=== PATIENT | male | born 1935 | race Caucasian/White ===

== ENCOUNTER 2020-05-20 02:45 | Emergency (ER) | payer MEDICARE ==
[~2020-05-20] VITALS: Ht 180.3 cm; Wt 100.0 kg
[2020-05-20 03:30] VITALS: BP 135/83
== END 2020-05-20 04:35 | disposition home or self-care (01) ==
LOC: EMS 02:47
DX: R41.0 Disorientation, unspecified (principal); I10 Essential (primary) hypertension
CPT/HCPCS: 99281; Z7502

== ENCOUNTER 2021-03-31 07:24 | Emergency (ER) | payer MEDICARE ==
[~2021-03-31] VITALS: Ht 172.7 cm; Wt 70.5 kg
[2021-03-31 08:50] LABS: BASOPHILS % (AUTO) 0.4 % (0.0-2.0); EOSINOPHILS % (AUTO) 0.8 % (1.0-6.0); HEMOGLOBIN 16.3 g/dL (13.5-17.5); LYMPHOCYTES # (AUTO) 0.8 K/uL (1.0-4.8); LYMPHOCYTES % (AUTO) 11.1 % (22.0-44.0); MEAN CORPUSCULAR HEMOGLOBIN 29.2 pg (26.0-34.0); MEAN CORPUSCULAR VOLUME 86 fL (80-100); MONOCYTES # (AUTO) 0.6 K/uL (0.1-1.0); MONOCYTES % (AUTO) 8.3 % (2.0-9.0); NEUTROPHILS # (AUTO) 5.9 K/uL (1.8-7.7); NEUTROPHILS % (AUTO) 79.4 % (40.0-70.0); PLATELET COUNT (AUTO) 147 K/uL (150-450); RED BLOOD CELL COUNT(AUTO) 5.58 MIL/uL (4.50-5.90); RED CELL DISTRIBUTION WIDTH 14.5 % (11.5-14.5)
[2021-03-31 09:00] LABS: CALCIUM, TOTAL 9.6 mg/dL (8.8-10.5); CREATININE 1.21 mg/dL (0.60-1.30); POTASSIUM 3.9 mmol/L (3.5-5.1)
[2021-03-31 09:05] LABS: INR 1.1 (0.9-1.1); PROTHROMBIN TIME 11.5 SEC (9.4-11.6)
[2021-03-31 09:06] LABS: ALBUMIN 4.3 g/dL (3.4-5.0); BILIRUBIN,TOTAL 1.5 mg/dL (0.1-1.0); TOTAL PROTEIN, SERUM 7.9 g/dL (6.4-8.2)
[2021-03-31 11:47] LABS: COVID AG,FIA SOURCE NASAL SWAB
[2021-03-31 11:57] LABS: APPEARANCE,URINE CLEAR (CLEAR); GLUCOSE, URINE (UA) NEGATIVE (NEGATIVE); KETONES,URINE >=80 mg/dL (NEGATIVE); LEUKOCYTE ESTERASE ,URINE NEGATIVE (NEGATIVE); NITRATE,URINE NEGATIVE (NEGATIVE); OCCULT BLOOD,URINE TRACE (NEGATIVE); PH,URINE 5.5 (5.0-8.0); PROTEIN,URINE POS 1+ (NEGATIVE)
[2021-03-31 12:12] LABS: BACTERIA,URINE None Seen /HPF (None Seen); BILIRUBIN,URINE PRELIM. POSITIVE (NEGATIVE); RBC,URINE 0-2 /HPF (0-2); WBC,URINE None Seen /HPF (0-5)
[2021-03-31] MEDS ORDERED: BARIUM SULFATE 0.1% SUSPENSION 450 ML BOTTLE PO ONE ×2 (12:15)
[2021-03-31] MEDS ORDERED: IOHEXOL 350 MG/ML 100 ML VIAL ONE (12:16)
[2021-03-31] MEDS ORDERED: SODIUM CHLORIDE 0.9% 100 ML ONE (12:16)
[2021-03-31 14:24] VITALS: BP 148/73
[2021-03-31] MEDS ORDERED: FAMO20 PO (14:25)
[2021-03-31] MEDS ORDERED: FAMOTIDINE 20 MG TABLET PO ONE (14:30)
[2021-03-31] MEDS ORDERED: ZINC OXIDE 40%/COD LIVER OIL 57 GM PASTE TP ONE (14:30)
[2021-03-31] MEDS ORDERED: DOCUSATE SODIUM 100 MG CAPSULE PO ONE (14:30)
== END 2021-03-31 15:58 | disposition home or self-care (01) ==
LOC: EMS 07:24
DX: L98.411 Non-pressure chronic ulcer of buttock limited to breakdown of skin (principal); K29.70 Gastritis, unspecified, without bleeding; K59.00 Constipation, unspecified; I10 Essential (primary) hypertension; Z20.822 Contact with and (suspected) exposure to COVID-19
CPT/HCPCS: 36415; 74022; 74177; 80053; 81001; 82271; 83690; 85025; 85610; 85730; 86850; 86900; 86901; 87426; 93005; 99285; J7050; Q9967

== ENCOUNTER 2021-04-04 06:52 | Emergency (ER) | payer MEDICARE ==
[~2021-04-04] VITALS: Ht 172.7 cm; Wt 110.0 kg
[~2021-04-04 06:52] MED LIST: FAMO20 PO
[2021-04-04 09:45] VITALS: BP 126/71
== END 2021-04-04 10:44 | disposition home or self-care (01) ==
LOC: EMS 06:53
DX: S40.011A Contusion of right shoulder, initial encounter (principal); I10 Essential (primary) hypertension; Z59.00 Homelessness unspecified; X58.XXXA Exposure to other specified factors, initial encounter; Y93.89 Activity, other specified; Y92.89 Other specified places as the place of occurrence of the external cause; Y99.8 Other external cause status
CPT/HCPCS: 99281; Z7502